=== PATIENT | female | born 1990 | race Caucasian/White ===

== ENCOUNTER 2019-04-17 07:22 | Emergency (ER) | payer MEDICAID ==
[~2019-04-17] VITALS: Ht 167.6 cm; Wt 95.3 kg
[2019-04-17 07:26] VITALS: BP 139/67; PULSE 78; RESP 20; Ht 167.6 cm; Wt 95.3 kg
--- NOTE | 2019-04-17 09:53 | ERD ---
ER Documentation Chief Complaint Chief Complaint Sent from OB for evaluation R/O Ectopic HPI 29-year-old female who was sent here by her clinic because she was told at the clinic she had a positive urine test. She does have an IUD. She has no vaginal bleeding or abdominal/pelvic pain. No nausea or vomiting. No fever. No urinary symptoms. ROS All systems reviewed and are negative except as per history of present illness. Allergies Allergies: Coded Allergies: No Known Allergy (Unverified , 04/17/19) PMhx/Soc Medical and Surgical Hx: pt denies Medical Hx History of Surgery: Yes (IUD PLACEMENT) Hx Alcohol Use: No Hx Substance Use: No Hx Tobacco Use: No Smoking Status: Never smoker FmHx Family History: No diabetes Physical Exam Vitals Vital Signs Date Temp Pulse Resp B/P (MAP) Pulse Ox O2 O2 Flow FiO2 Time Delivery Rate 04/17/19 98.3 78 20 139/67 98 07:26 (91) Physical Exam INITIAL VITAL SIGNS: Reviewed by me GENERAL: Awake, alert and oriented x 4, well appearing, nontoxic, speaking in full sentences. No acute distress RESPIRATORY: Clear to auscultation bilaterally. Symmetric chest wall rise. No wheezing or rales. No accessory muscle use. CV: Regular rate and rhythm. No murmurs, rubs, or gallops. ABDOMEN: Soft, non-distended. Nontender. Negative [place]. Negative McBurneys point tenderness. No CVA tenderness bilaterally. No guarding. No rebound. Result Diagram: 04/17/19 0816 Results 24 hrs Laboratory Tests Test 04/17/19 08:16 White Blood Count 7.2 10^3/ul Red Blood Count 4.56 10^6/ul Hemoglobin 12.1 g/dl Hematocrit 39.0 % Mean Corpuscular Volume 85.5 fl Mean Corpuscular Hemoglobin 26.5 pg Mean Corpuscular Hemoglobin Concent 31.0 g/dl Red Cell Distribution Width 13.6 % Platelet Count 371 10^3/UL Mean Platelet Volume 9.8 fl Immature Granulocytes % 0.300 % Neutrophils % 63.9 % Lymphocytes % 28.4 % Monocytes % 5.6 % Eosinophils % 1.4 % Basophils % 0.4 % Nucleated Red Blood Cells % 0.0 /100WBC Immature Granulocytes # 0.020 10^3/ul Neutrophils # 4.6 10^3/ul Lymphocytes # 2.0 10^3/ul Monocytes # 0.4 10^3/ul Eosinophils # 0.1 10^3/ul Basophils # 0.0 10^3/ul Nucleated Red Blood Cells # 0.0 10^3/ul Urine Color YELLOW Urine Clarity CLOUDY Urine pH 8.0 Urine Specific [place] 1.009 Urine Ketones NEGATIVE mg/dL Urine Nitrite NEGATIVE mg/dL Urine Bilirubin NEGATIVE mg/dL Urine Urobilinogen NEGATIVE mg/dL Urine Leukocyte Esterase TRACE Ryan/ul Urine Microscopic RBC 6 /HPF Urine Microscopic WBC 22 /HPF Urine Squamous Epithelial Cells MANY /HPF Urine Amorphous Crystals FEW /HPF Urine Hemoglobin NEGATIVE mg/dL Urine Glucose NEGATIVE mg/dL Urine Total Protein NEGATIVE mg/dl Beta HCG, Quantitative < 2.4 mIU/ml Procedures/MDM This patient is here because she was told she had a positive test at her outside clinic. She does have an IUD. She has no abdominal pain or vaginal bleeding. Her beta hCG today is less than 2.4 and ultrasound shows no evidence of . Ectopic cannot be ruled out so she should come back in a few days to check levels and ultrasound again however at this time it appears like she was never really to begin with. Patient counseled regarding my diagnostic impression and care plan. Prior to discharge all questions answered. Pt agrees with treatment plan and understands strict return precau tions. Pt is instructed to follow up with primary care provider within 24-48 hours. Precautionary instructions provided including instructions to return to the ER if not improving or for any worsening or changing symptoms or concerns. Departure Diagnosis: Primary Impression: Encounter for laboratory test Condition: Stable Patient Instructions: Medical Screening Exam, Nonurgent Additional Instructions: Call your primary care doctor TOMORROW for an appointment during the next 1-2 days.See the doctor sooner or return here if your condition worsens before your appointment time. MALISSA HOLMAN PA-C April 17, 2019 09:53
== END 2019-04-17 09:53 | disposition home or self-care (01) ==
LOC: FTE 07:22
DX: Z32.02 Encounter for pregnancy test, result negative (principal)
CPT/HCPCS: 36415; 76801; 76817; 81001; 84702; 85025; 86900; 86901; Z7502